=== PATIENT | female | born 1995 | race Two or more races ===

== ENCOUNTER 2017-05-11 04:20 | Inpatient (IN) | payer MEDICAID ==
[2017-05-11] MEDS ORDERED: Lactated Ringers 1,000 ML IV ONE (07:35)
[2017-05-11] MEDS ORDERED: Sodium Chloride 0.9% 10 ML Syringe FLUSH PRN (07:52)
[2017-05-11] MEDS ORDERED: Morphine PF 10 MG/10 ML SDV EPIDUR ONE (07:55)
[2017-05-11] MEDS ORDERED: fentaNYL 100 MCG/2 ML SDV EPIDUR ONE ×2 (07:55→15:50)
[2017-05-11] MEDS ORDERED: Bupivacaine 0.75%/D5W 2 ML Amp INJECT ONE (07:55)
[2017-05-11] MEDS ORDERED: ePHEDrine 50 MG/ML SDV ONE (08:04)
[2017-05-11] MEDS ORDERED: Naloxone 0.4 MG/ML SDV ONE (08:05)
[2017-05-11] MEDS ORDERED: Famotidine/Normal Saline 20 MG in Premix Bag 1 BAG IV PRN (08:17)
[2017-05-11] MEDS ORDERED: diphenhydrAMINE 50 MG/ML SDV IVPUSH PRN ×2 (08:17→16:59)
[2017-05-11] MEDS ORDERED: Promethazine 12.5 MG in Sodium Chloride 0.9% 50 ML IV PRN (08:17)
[2017-05-11] MEDS ORDERED: diphenhydrAMINE 50 MG/ML SDV IV PRN (08:17)
[2017-05-11] MEDS ORDERED: Naltrexone 50 MG Tab PO PRN (08:17)
[2017-05-11] MEDS ORDERED: Scopolamine 1.5 MG Transdermal Patch TOP ONE (08:17)
[2017-05-11] MEDS ORDERED: Nalbuphine 10 MG/1 ML Vial IVPUSH PRN (08:17)
[2017-05-11] MEDS ORDERED: Ondansetron 4 MG/2 ML SDV IVPUSH PRN ×2 (08:17→17:01)
[2017-05-11] MEDS ORDERED: Naloxone 0.4 MG/ML SDV IVPUSH PRN ×2 (08:17→16:59)
[2017-05-11] MEDS ORDERED: Promethazine 6.25 MG in Sodium Chloride 0.9% 50 ML IV PRN (08:17)
[2017-05-11] MEDS: ePHEDrine 50 MG/ML SDV IVPUSH PRN ×2 (08:18→08:22)
[2017-05-11] MEDS ORDERED: Lactated Ringers 1,000 ML IV SCH (08:20)
[2017-05-11] MEDS ORDERED: Scopolamine 1.5 MG Transdermal Patch ONE (08:27)
[2017-05-11] MEDS ORDERED: Lactated Ringers 500 ML IV SCH ×2 (08:30)
[2017-05-11] MEDS ORDERED: Oxytocin/Normal Saline 10 UNIT/1,000 ML BAG IV SCH (09:15)
--- NOTE | 2017-05-11 11:02 | CR ---
INDICATION: Vaginal bleeding at 37 weeks gestation. OB ULTRASOUND LIMITED: Multiple ultrasonic images revealed a single longitudinally-lying, cephalic-presenting fetus, with a regular heart rate of 117 BPM. Four-chamber heart was demonstrated. Three-vessel cord is noted. A normal amount of amniotic fluid is seen. The placenta is grade 3, laterally on the left, without evidence of previa or abruption. No adnexal mass lesion or free fluid collection was demonstrated. IMPRESSION: No evidence of abruption or placenta previa. Grade 3 placenta. Cephalic presentation. MTDD
[2017-05-11] MEDS ORDERED: fentaNYL 100 MCG/2 ML SDV ONE (15:43)
[2017-05-11] MEDS ORDERED: fentaNYL 300 MCG in Ropivacaine 200 ML IV ONE (15:50)
[2017-05-11] MEDS ORDERED: ePHEDrine 50 MG/ML SDV IVPUSH PRN (16:59)
[2017-05-11] MEDS ORDERED: Promethazine 25 MG/ML SDV IV PRN (16:59)
[2017-05-11] MEDS ORDERED: Naloxone 0.4 MG in Sodium Chloride 0.9% 100 ML IV PRN (16:59)
[2017-05-11] MEDS ORDERED: hydrOXYzine HCl 50 MG/ML SDV IM PRN ×2 (16:59)
--- NOTE | 2017-05-11 19:09 | PCM.LDHP ---
L&D History of Present Illness - General Date of Service: 05/11/17 Admit Problem/Dx: Patient Status Order with Admit Dx/Problem 05/11/17 04:29 Admission Status [Patient Status] [ADT] Routine 05/11/17 05:29 Admission Status [Patient Status] [ADT] Routine Admission Diagnosis/Problem Admission Diagnosis/Problem Normal Source of Information: Patient History Limitations: Reports: No Limitations - History of Present Illness Introduction:: Patient presented with vaginal bleeding at term. Painful,associated with contractions. Started at about 3 AM. Progressively getting worse. Quality: Reports: Throbbing Severity: Moderate Improves with: Reports: None - Related Data Allergies/Adverse Reactions: Allergies Allergy/AdvReac Type Severity Reaction Status Date / Time No Known Allergies Allergy Verified 05/09/17 17:12 Home Medications: Home Meds TVL180/Iron Fumarate/FA/DSS [ 19 Tablet] 1 each PO DAILY 05/05/17 [ History] Budesonide [Pulmicort Flexhaler] 2 puff IH DAILY PRN 05/09/17 [History] Fluticasone Propionate [Flonase] 2 sprays NASBOTH DAILY 05/09/17 [History] Past Medical History - Past Health History Medical/Surgical History: Denies Medical/Surgical History HEENT History: Reports: Impaired Vision Genitourinary History: Reports: UTI, 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, Other Musculoskeletal History: RT WRIST FRACTURE Psychiatric History: Reports: Bipolar - Infectious Disease History Infectious Disease History: Reports: Chicken Pox Social & Family History - Family History Family Medical History: Noncontributory HEENT: Reports: Cataract Endocrine/Metabolic: Reports: Diabetes, Type I - Tobacco Use Smoking Status *Q: Former Smoker Years of Tobacco use: 5 Packs/Tins Daily: 1 Used Tobacco, but Quit: Yes Month Tobacco Last Used: JULY Second Hand Smoke Exposure: No - Caffeine Use Caffeine Use: Reports: Soda Other Caffeine Use: 1-2 CANS PER DAY - Recreational Drug Use Recreational Drug Use: No - Living Situation & Occupation Living situation: Reports: Single Occupation: Employed H&P Review of Systems - Review of Systems: Review Of Systems: ROS reveals no pertinent complaints other than HPI. L&D Exam - Exam Exam: See Below - Vital Signs Vital Signs: Last Vital Signs Temp 98 F 05/11/17 15:45 Pulse 80 05/11/17 17:15 Resp 18 05/11/17 11:15 BP 106/63 05/11/17 17:15 Pulse Ox 100 05/11/17 08:15 Weight: 67.585 kg - OB Specific Contraction Duration (sec): 90 Contraction Frequency (min): 2-4 Contraction Intensity: Moderate to Strong - Gonsalves Score Gonsalves Score Cervix Position: Midposition Gonsalves Score Consistency: Soft Gonsalves Score Dilation: > 5 cm Gonsalves Score 's Station: -1 ,0 - Exam General: Alert, Oriented HEENT: PERRLA, Conjunctiva Clear, EACs Clear, EOMI, Hearing Intact, Mucosa Moist & Boles, Nares Patent, Normal Nasal Septum, Posterior Pharynx Clear, TMs Clear Neck: Supple, Trachea Midline Lungs: Clear to Auscultation, Normal Respiratory Effort Cardiovascular: Regular Rate, Regular Rhythm GI/Abdominal Exam: Normal Bowel Sounds, Soft, Non-Tender, No Organomegaly, No Distention, No Abnormal Bruit, No Mass, Pelvis Stable Rectal Exam: Normal Exam, Normal Rectal Tone Genitourinary: Normal external exam, Normal bimanual exam, Normal speculum exam Back Exam: Normal Inspection, Full Range of Motion Extremities: Normal Inspection, Normal Range of Motion, Non-Tender, No Pedal Edema, Normal Capillary Refill Skin: Warm, Dry, Intact Neurological: Cranial Nerves Intact, Reflexes Equal Bilateral Psychiatric: Alert, Normal Affect, Normal Mood - Patient Data Lab Results Last 24 hrs: Laboratory Results - last 24 hr 05/11/17 05/11/17 05/11/17 Range/Units 04:50 04:55 04:55 WBC 9.7 (4.5-12.0) X10-3/uL RBC 4.13 (3.23-5.20) x10(6)uL Hgb 10.8 L (11.5-15.5) g/dL Hct 32.7 (30.0-51.3) % MCV 79.3 L (80-96) fL MCH 26.2 L (27.7-33.6) pg MCHC 33.1 (32.2-35.4) g/dL RDW 13.0 (11.5-15.5) % Plt Count 286 (125-369) X10(3)uL MPV 8.5 (7.4-10.4) fL Neutrophils % (Manual) 62 (46-82) % Lymphocytes % (Manual) 27 (13-37) % Monocytes % (Manual) 11 (4-12) % Sodium 134 L (135-145) mmol/L Potassium 3.6 (3.5-5.3) mmol/L Chloride 108 (100-110) mmol/L Carbon Dioxide 19 L (23-29) mmol/L BUN 6 (5-20) mg/dL Creatinine 0.6 (0.6-1.3) mg/dL Est Cr Clr Drug Dosing 103.85 mL/min Estimated GFR (MDRD) > 60 (>60) BUN/Creatinine Ratio 10.0 (9-20) Glucose 91 (80-116) mg/dL Calcium 9.1 (8.6-10.2) mg/dL Urine Color Yellow (YELLOW) Urine Appearance Clear (CLEAR) Urine pH 7.0 H (5.0-6.5) Ur Specific [place] 1.000 L (1.010-1.025) Urine Protein Negative (NEGATIVE) mg/dL Urine Glucose (UA) Normal (NEGATIVE) mg/dL Urine Ketones Negative (NEGATIVE) mg/dL Urine Occult Blood Large H (NEGATIVE) Urine Nitrite Negative (NEGATIVE) Urine Bilirubin Negative (NEGATIVE) Urine Urobilinogen Normal (NEGATIVE) mg/dL Ur Leukocyte Esterase Small H (NEGATIVE) Urine RBC 10-20 H (0) Urine WBC 0-5 (0) Ur Squamous Epith Cells Occasional (NS,R,O) Urine Bacteria Rare H (NS) Result Diagrams: 05/12/17 06:30 05/11/17 04:55 - Problem List (1) Vaginal bleeding during , antepartum SNOMED Code(s): 87497811 ICD Code: O46.90 - ANTEPARTUM HEMORRHAGE, UNSPECIFIED, UNSPECIFIED TRIMESTER Status: Acute Current Visit: Yes (2) Term SNOMED Code(s): 46552226 ICD Code: Z34.80 - ENCOUNTER FOR SUPRVSN OF NORMAL , UNSP TRIMESTER Status: Acute Current Visit: Yes (3) Anemia affecting SNOMED Code(s): 51309746 ICD Code: O99.019 - ANEMIA COMPLICATING , UNSPECIFIED TRIMESTER Status: Acute Current Visit: Yes Qualifiers: Trimester: third trimester Qualified Code(s): O99.013 - Anemia complicating , third trimester Problem List Initiated/Reviewed/Updated: Yes Orders Last 24hrs: Active Orders 24 hr Category Date Time Status Admission Status [Patient Status] [ADT] Routine ADT 05/11/17 05:29 Active Bedrest [RC] ASDIRECTED Care 05/11/17 08:17 Active Communication Order [RC] ASDIRECTED Care 05/11/17 08:17 Active Communication Order [RC] ASDIRECTED Care 05/11/17 19:08 Ordered Communication Order [RC] Click to Edit Care 05/11/17 08:17 Active Communication Order [RC] Per Unit Routine Care 05/11/17 08:17 Active Communication Order [RC] STAT Care 05/11/17 08:17 Active Heart Rate [RC] Click to Edit Care 05/11/17 08:17 Active Head of Bed Elevation [RC] ASDIRECTED Care 05/11/17 08:17 Active Intake and Output [RC] Q4H Care 05/11/17 08:17 Active Oxygen Therapy [RC] ASDIRECTED Care 05/11/17 08:17 Active [place] Opioid Induced Sedation [RC] Q1H Care 05/11/17 08:17 Active Vital Signs [RC] PFP Care 05/11/17 19:08 Ordered Regular Diet [DIET] Diet 05/11/17 Breakfast Ordered CBC WITH AUTO DIFF [HEME] AM Lab 05/12/17 05:11 Ordered TYPE AND SCREEN [BBK] Routine Lab 05/11/17 19:07 Ordered Famotidine/Normal Saline [Famotidine in NS Premix] 20 Med 05/11/17 08:17 Active mg Premix Bag 1 bag IV ONETIME Ibuprofen [Motrin] Med 05/11/17 19:07 Ordered 600 mg PO Q4H PRN Lactated Ringers [Ringers, Lactated] 1,000 ml Med 05/11/17 08:20 Active IV ASDIRECTED Lactated Ringers [Ringers, Lactated] 500 ml Med 05/11/17 08:30 Active IV .BOLUS Lactated Ringers [Ringers, Lactated] 500 ml Med 05/11/17 08:30 Active IV .SEECOMMENT Misoprostol [Cytotec] Med 05/11/17 19:15 Ordered 800 mcg PO ONETIME Nalbuphine [Nubain] Med 05/11/17 08:17 Active 10 mg IVPUSH Q1H PRN Naloxone [Narcan] Med 05/11/17 16:59 Active 0.1 mg IVPUSH ASDIRECTED PRN Naloxone [Narcan] 0.4 mg Med 05/11/17 16:59 Active Sodium Chloride 0.9% [Normal Saline] 100 ml IV ASDIRECTED Naltrexone Med 05/11/17 08:17 Active 25 mg PO ASDIRECTED PRN Ondansetron [Zofran] Med 05/11/17 17:01 Active 4 mg IVPUSH Q6H PRN Oxytocin/Normal Saline [Pitocin in NS 10 UNITS/1,000 ML Med 05/11/17 09:15 Active ] 10 unit in 1,000 ml IV TITRATE Promethazine [Phenergan] 12.5 mg Med 05/11/17 08:17 Active Sodium Chloride 0.9% [Normal Saline] 50 ml IV Q4H Promethazine [Phenergan] 6.25 mg Med 05/11/17 08:17 Active Sodium Chloride 0.9% [Normal Saline] 50 ml IV Q4H Sodium Chloride 0.9% [Saline Flush] Med 05/11/17 07:52 Active 10 ml FLUSH ASDIRECTED PRN diphenhydrAMINE [Benadryl] Med 05/11/17 08:17 Active 25 mg IVPUSH ASDIRECTED PRN diphenhydrAMINE [Benadryl] Med 05/11/17 16:59 Active 25 mg IVPUSH ASDIRECTED PRN ePHEDrine [ePHEDrine Sulfate] Med 05/11/17 16:59 Active 5 mg IVPUSH ASDIRECTED PRN hydrOXYzine HCl [Vistaril] Med 05/11/17 16:59 Active 0 mg IM Q4H PRN hydrOXYzine HCl [Vistaril] Med 05/11/17 16:59 Active 25 - 50 mg IM Q6H PRN Assess Lochia [WOMSER] Per Unit Routine Ot 05/11/17 19:07 Ordered Assess Uterine Involution [WOMSER] Per Unit Routine Ot 05/11/17 19:07 Ordered Blood Pressure [OM.PC] Routine Ot 05/11/17 08:17 Ordered Do Not Administer Anticoagulant Meds [AST] Per Unit Oth 05/11/17 08:17 Ordered Routine Do Not Administer IV Narcs or Sedatives [AST] Per Unit Ot 05/11/17 08:17 Ordered Routine Ice Therapy [OM.PC] Per Unit Routine Ot 05/11/17 19:08 Ordered Peripheral IV Insertion Adult [OM.PC] Routine Ot 05/11/17 07:35 Ordered Respiratory Rate [OM.PC] [facility] 05/11/17 08:30 Ordered Respiratory Rate [OM.PC] Q1 Ot 05/11/17 08:30 Ordered Respiratory Rate [OM.PC] [address] 05/11/17 09:30 Ordered Respiratory Rate [OM.PC] [address] 05/11/17 09:30 Ordered Respiratory Rate [OM.PC] [address] 05/11/17 10:30 Ordered Respiratory Rate [OM.PC] [address] 05/11/17 10:30 Ordered Respiratory Rate [OM.PC] [address] 05/11/17 11:30 Ordered Respiratory Rate [OM.PC] [address] 05/11/17 11:30 Ordered Respiratory Rate [OM.PC] [address] 05/11/17 12:30 Ordered Respiratory Rate [OM.PC] [address] 05/11/17 13:30 Ordered Respiratory Rate [OM.PC] [address] 05/11/17 14:30 Ordered Respiratory Rate [OM.PC] [address] 05/11/17 15:30 Ordered Respiratory Rate [OM.PC] [address] 05/11/17 16:30 Ordered Respiratory Rate [OM.PC] [address] 05/11/17 17:30 Ordered Respiratory Rate [OM.PC] [address] 05/11/17 18:30 Ordered Respiratory Rate [OM.PC] [address] 05/11/17 19:30 Ordered Respiratory Rate [OM.PC] [address] 05/11/17 20:30 Ordered Respiratory Rate [OM.PC] [address] 05/11/17 21:30 Ordered Respiratory Rate [OM.PC] [address] 05/11/17 22:30 Ordered Respiratory Rate [OM.PC] [address] 05/11/17 23:30 Ordered Respiratory Rate [OM.PC] [facility] Ot 05/12/17 00:30 Ordered Respiratory Rate [OM.PC] [address] 05/12/17 01:30 Ordered Sitz Bath [OM.PC] Per Unit Routine Oth 05/11/17 19:08 Ordered Resuscitation Status Routine Resus Stat 05/11/17 19:07 Ordered Medication Orders Diphenhydramine HCl (Benadryl) 25 mg IVPUSH ASDIRECTED PRN PRN Reason: EXTRAPYRAMIDAL SIDE EFFECTS Diphenhydramine HCl (Benadryl) 25 mg IVPUSH ASDIRECTED PRN PRN Reason: PRURITUS Ephedrine Sulfate (Ephedrine Sulfate) 5 mg IVPUSH ASDIRECTED PRN PRN Reason: HYPOTENSION Hydroxyzine HCl (Vistaril) 25 - 50 mg IM Q6H PRN PRN Reason: PRURITIS Hydroxyzine HCl (Vistaril) 0 mg IM Q4H PRN PRN Reason: N/V Lactated Ringer's (Ringers, Lactated) 1,000 mls @ 150 mls/hr IV ASDIRECTED [facility] Last Admin: 05/11/17 10:45 Dose: 150 mls/hr Famotidine 20 mg/ Premix 50 mls @ 100 mls/hr IV ONETIME PRN PRN Reason: PRURITIS Lactated Ringer's (Ringers, Lactated) 500 mls @ 999 mls/hr IV .SEECOMMENT [facility] Last Admin: 05/11/17 08:30 Dose: 999 mls/hr Lactated Ringer's (Ringers, Lactated) 500 mls @ 999 mls/hr IV .BOLUS [facility] Last Admin: 05/11/17 16:13 Dose: 999 mls/hr Promethazine HCl 6.25 mg/ (Sodium Chloride) 50.25 mls @ 200 mls/hr IV Q4H PRN PRN Reason: Nausea/Vomiting Promethazine HCl 12.5 mg/ (Sodium Chloride) 50.5 mls @ 200 mls/hr IV Q4H PRN PRN Reason: Nausea/Vomiting Oxytocin/Sodium Chloride (Pitocin In Ns 10 Units/1,000 Ml) 10 unit in 1,000 mls @ 12 mls/hr IV TITRATE NOHEMI; 2 MUNITS/MIN PRN Reason: Protocol Last Titration: 05/11/17 16:20 Dose: 14 munits/min, 84 mls/hr Titration: 05/11/17 14:33 Dose: 12 munits/min, 72 mls/hr Titration: 05/11/17 12:33 Dose: 10 munits/min, 60 mls/hr Titration: 05/11/17 11:53 Dose: 8 munits/min, 48 mls/hr Titration: 05/11/17 11:21 Dose: 6 munits/min, 36 mls/hr Titration: 05/11/17 10:40 Dose: 4 munits/min, 24 mls/hr Admin: 05/11/17 10:00 Dose: 2 munits/min, 12 mls/hr Naloxone HCl 0.4 mg/ Sodium (Chloride) 101 mls @ 25 mls/hr IV ASDIRECTED PRN PRN Reason: PER ORDER OF ANESTHESIA Nalbuphine HCl (Nubain) 10 mg IVPUSH Q1H PRN PRN Reason: PRURITUS Naloxone HCl (Narcan) 0.1 mg IVPUSH ASDIRECTED PRN PRN Reason: RESPIRATORY STATUS Naltrexone HCl (Naltrexone) 25 mg PO ASDIRECTED PRN PRN Reason: REVERSAL Ondansetron HCl (Zofran) 4 mg IVPUSH Q6H PRN PRN Reason: N/V Sodium Chloride (Saline Flush) 10 ml FLUSH ASDIRECTED PRN PRN Reason: Keep Vein Open Last Admin: 05/11/17 07:35 Dose: 10 ml Assessment/Plan Comment:: CBC showed mild anemia. US was neg for Placenta Pravia. NST was reactive and reassuring. Will admit for delivery.
[2017-05-11] MEDS ORDERED: Misoprostol 200 MCG Tab PO SCH (19:15)
[2017-05-12] MEDS: Ibuprofen 600 MG Tab PO PRN (11:58)
--- NOTE | 2017-05-12 13:53 | PCM.DEL ---
L & D Note - General Info Date of Service: 05/11/17 - Delivery Note Labor: Spontaneous, Augmented by ARM, Augmented by Oxytocin Delivery Outcome: Livebirth Infant Delivery Method: Spontaneous Vaginal Delivery Presentation: Right Occiput Anterior (RISHI) Nuchal Cord: None Prep: Povidone-Iodine (Betadine Anesthesia Type: Epidural Amniotic Fluid Description: Bloody Episiotomy Type: None Laceration: None Placenta: Intact, Spontaneous, Expressed Cord: 3 Vessels Estimated Blood Loss: 500 (I used oxytosin,uterine massage and Cytotec) Resuscitation Needed: No : Suctioned, Bulb Syringe, Stimulated, Warmed, [place] Used, Warmer Used Post Delivery Events: Hemorrhage Second Stage Interventions: Reports: Second Nurse Assessed Progress of Descent, Second Nurse Reviewed Heart Tones, Encouragement Given Delivery Comments (Free Text/Narrative):: Had post hemorrhage. Successively controlled with uterotonics,and 1 L LR bolus. - General Info Date of Service: 05/11/17 Functional Status: Reports: Pain Controlled - Review of Systems General: Reports: No Symptoms HEENT: Reports: No Symptoms Pulmonary: Reports: No Symptoms Cardiovascular: Reports: No Symptoms Gastrointestinal: Reports: No Symptoms Genitourinary: Reports: No Symptoms Musculoskeletal: Reports: No Symptoms Skin: Reports: No Symptoms Neurological: Reports: No Symptoms Psychiatric: Reports: No Symptoms - Patient Data Vitals - Most Recent: Last Vital Signs Temp 99.9 F 05/12/17 02:54 Pulse 50 L 05/12/17 02:54 Resp 16 05/12/17 02:54 BP 91/43 L 05/12/17 02:54 Pulse Ox 100 05/12/17 02:54 Weight - Most Recent: 67.585 kg I&O - Last 24 Hours: Intake & Output 05/11/17 05/12/17 05/12/17 22:59 06:59 14:59 Intake Total 4293 0 Balance 4293 0 Lab Results Last 24 Hours: Laboratory Results - last 24 hr 05/11/17 05/12/17 Range/Units 05:00 06:30 WBC 14.6 H (4.5-12.0) X10-3/uL RBC 3.23 (3.23-5.20) x10(6)uL Hgb 8.3 L (11.5-15.5) g/dL Hct 25.1 L (30.0-51.3) % MCV 77.9 L (80-96) fL MCH 25.6 L (27.7-33.6) pg MCHC 32.9 (32.2-35.4) g/dL RDW 13.3 (11.5-15.5) % Plt Count 247 (125-369) X10(3)uL MPV 7.7 (7.4-10.4) fL Neut % (Auto) 66.8 (46-82) % Lymph % (Auto) 23.4 (13-37) % [place] % (Auto) 8.9 (4-12) % Eos % (Auto) 1 (1.0-5.0) % Baso % (Auto) 0 (0-2) % Neut # (Auto) 9.8 H (1.6-8.3) # Lymph # (Auto) 3.4 (0.6-5.0) # [place] # (Auto) 1.3 (0.0-1.3) # Eos # (Auto) 0.1 (0.0-0.8) # Baso # (Auto) 0.0 (0.0-0.2) # Blood Type A POSITIVE Gel Antibody Screen Negative Med Orders - Current: Current Medications Diphenhydramine HCl (Benadryl) 25 mg IVPUSH ASDIRECTED PRN PRN Reason: EXTRAPYRAMIDAL SIDE EFFECTS Lactated Ringer's (Ringers, Lactated) 1,000 mls @ 150 mls/hr IV ASDIRECTED NOHEMI Last Admin: 05/11/17 10:45 Dose: 150 mls/hr Famotidine 20 mg/ Premix 50 mls @ 100 mls/hr IV ONETIME PRN PRN Reason: PRURITIS Oxytocin/Sodium Chloride (Pitocin In Ns 10 Units/1,000 Ml) 10 unit in 1,000 mls @ 12 mls/hr IV TITRATE NOHEMI; 2 MUNITS/MIN PRN Reason: Protocol Last Titration: 05/11/17 16:20 Dose: 14 munits/min, 84 mls/hr Ibuprofen (Motrin) 600 mg PO Q4H PRN PRN Reason: Pain Last Admin: 05/12/17 11:58 Dose: 600 mg Misoprostol (Cytotec) 800 mcg PO ONETIME NOHEMI Last Admin: 05/11/17 18:57 Dose: 800 mcg Naltrexone HCl (Naltrexone) 25 mg PO ASDIRECTED PRN PRN Reason: REVERSAL Sodium Chloride (Saline Flush) 10 ml FLUSH ASDIRECTED PRN PRN Reason: Keep Vein Open Last Admin: 05/11/17 07:35 Dose: 10 ml Discontinued Medications Diphenhydramine HCl (Benadryl) 25 mg IV ASDIRECTED PRN PRN Reason: PRURITUS Diphenhydramine HCl (Benadryl) 25 mg IVPUSH ASDIRECTED PRN PRN Reason: PRURITUS Ephedrine Sulfate (Ephedrine Sulfate) Confirm Administered Dose 50 mg .ROUTE .STK-MED ONE Stop: 05/11/17 08:05 Last Admin: 05/11/17 08:36 Dose: Not Given Ephedrine Sulfate (Ephedrine Sulfate) 5 mg IVPUSH ASDIRECTED PRN PRN Reason: Hypotension Last Admin: 05/11/17 08:22 Dose: 5 mg Ephedrine Sulfate (Ephedrine Sulfate) 5 mg IVPUSH ASDIRECTED PRN PRN Reason: HYPOTENSION Fentanyl (Sublimaze) Confirm Administered Dose 400 mcg .ROUTE .STCloudscaling-MED ONE Stop: 05/11/17 15:44 Hydroxyzine HCl (Vistaril) 25 - 50 mg IM Q6H PRN PRN Reason: PRURITIS Hydroxyzine HCl (Vistaril) 0 mg IM Q4H PRN PRN Reason: N/V Lactated Ringer's (Ringers, Lactated) 1,000 mls @ 999 mls/hr IV BOLUS ONE Stop: 05/11/17 08:35 Last Admin: 05/11/17 07:35 Dose: 999 mls/hr Lactated Ringer's (Ringers, Lactated) 500 mls @ 999 mls/hr IV .SEECOMMENT [facility] Last Admin: 05/11/17 08:30 Dose: 999 mls/hr Lactated Ringer's (Ringers, Lactated) 500 mls @ 999 mls/hr IV .BOLUS [facility] Last Admin: 05/11/17 16:13 Dose: 999 mls/hr Promethazine HCl 6.25 mg/ (Sodium Chloride) 50.25 mls @ 200 mls/hr IV Q4H PRN PRN Reason: Nausea/Vomiting Promethazine HCl 12.5 mg/ (Sodium Chloride) 50.5 mls @ 200 mls/hr IV Q4H PRN PRN Reason: Nausea/Vomiting Naloxone HCl 0.4 mg/ Sodium (Chloride) 101 mls @ 25 mls/hr IV ASDIRECTED PRN PRN Reason: PER ORDER OF ANESTHESIA Nalbuphine HCl (Nubain) 10 mg IVPUSH Q1H PRN PRN Reason: PRURITUS Naloxone HCl (Narcan) Confirm Administered Dose 0.4 mg .ROUTE .STK-MED ONE Stop: 05/11/17 08:06 Last Admin: 05/11/17 09:09 Dose: Not Given Naloxone HCl (Narcan) 0.1 mg IVPUSH .SEECOMMENT PRN PRN Reason: Respiratory Depression Stop: 05/11/17 08:18 Naloxone HCl (Narcan) 0.1 mg IVPUSH ASDIRECTED PRN PRN Reason: RESPIRATORY STATUS Ondansetron HCl (Zofran) 4 mg IVPUSH Q4H PRN PRN Reason: Nausea/Vomiting Ondansetron HCl (Zofran) 4 mg IVPUSH Q6H PRN PRN Reason: N/V Promethazine HCl (Phenergan) 6.25 - 12.5 mg IV Q4H PRN PRN Reason: NAUSEA AND VOMITING Scopolamine (Transderm-Scop) 1.5 mg TOP ONETIME ONE Stop: 05/11/17 08:18 Last Admin: 05/11/17 08:30 Dose: 1.5 mg Scopolamine (Transderm-Scop) Confirm Administered Dose 1.5 mg .ROUTE .STK-MED ONE Stop: 05/11/17 08:28 Last Admin: 05/11/17 08:41 Dose: Not Given - Exam General: Alert, Oriented HEENT: Pupils Equal, Pupils Reactive, EOMI, Mucous Membr. Moist/[place] Neck: Supple Lungs: Clear to Auscultation, Normal Respiratory Effort Cardiovascular: Regular Rate, Regular Rhythm GI/Abdominal Exam: Normal Bowel Sounds, Soft, Non-Tender, No Organomegaly, No Distention, No Abnormal Bruit, No Mass, Pelvis Stable (Female) Exam: Normal External Exam, Normal Speculum Exam, Normal Bimanual Exam Back Exam: Normal Inspection, Full Range of Motion Extremities: Normal Inspection, Normal Range of Motion, Non-Tender, No Pedal Edema, Normal Capillary Refill Skin: Warm, Dry, Intact Wound/Incisions: Healing Well Neurological: No New Focal Deficit Psy/Mental Status: Alert, Normal Affect, Normal Mood - Problem List & Annotations (1) Vaginal bleeding during , antepartum SNOMED Code(s): 96887773 Code(s): O46.90 - ANTEPARTUM HEMORRHAGE, UNSPECIFIED, UNSPECIFIED TRIMESTER Status: Acute Current Visit: Yes (2) Term SNOMED Code(s): 64737309 Code(s): Z34.80 - ENCOUNTER FOR SUPRVSN OF NORMAL , UNSP TRIMESTER Status: Acute Current Visit: Yes (3) Anemia affecting SNOMED Code(s): 44364475 Code(s): O99.019 - ANEMIA COMPLICATING , UNSPECIFIED TRIMESTER Status: Acute Current Visit: Yes Qualifiers: Trimester: third trimester Qualified Code(s): O99.013 - Anemia complicating , third trimester (4) hemorrhage SNOMED Code(s): 26943517 Code(s): O72.1 - OTHER IMMEDIATE HEMORRHAGE Status: Acute Current Visit: Yes Qualifiers: hemorrhage type: third-stage Qualified Code(s): O72.0 - Third- stage hemorrhage - Problem List Review Problem List Initiated/Reviewed/Updated: Yes - My Orders Last 24 Hours: My Active Orders 05/11/17 19:07 Ibuprofen [Motrin] 600 mg PO Q4H PRN Assess Lochia [WOMSER] Per Unit Routine Assess Uterine Involution [WOMSER] Per Unit Routine Resuscitation Status Routine 05/11/17 19:08 Communication Order [RC] ASDIRECTED Vital Signs [RC] PFP Ice Therapy [OM.PC] Per Unit Routine Sitz Bath [OM.PC] Per Unit Routine 05/11/17 19:15 Misoprostol [Cytotec] 800 mcg PO ONETIME - Plan Plan:: CBC showed mild anemia. Bolus 1L. Monitor uterine involution and Vital signs.
[2017-05-13 00:56] VITALS: BP 96/56
[2017-05-13] MEDS: Ibuprofen 600 MG Tab PO PRN (07:47)
--- NOTE | 2017-05-13 10:08 | PCM.PNPP ---
- General Info Date of Service: 05/13/17 Functional Status: Reports: Pain Controlled - Review of Systems General: Reports: No Symptoms HEENT: Reports: No Symptoms Pulmonary: Reports: No Symptoms Cardiovascular: Reports: No Symptoms Gastrointestinal: Reports: No Symptoms Genitourinary: Reports: No Symptoms Musculoskeletal: Reports: No Symptoms Skin: Reports: No Symptoms Neurological: Reports: No Symptoms Psychiatric: Reports: No Symptoms - General Info Date of Service: 05/13/17 - Patient Data Vital Signs - Most Recent: Last Vital Signs Temp 98.4 F 05/12/17 21:00 Pulse 62 05/12/17 21:00 Resp 18 05/12/17 21:00 BP 96/56 L 05/12/17 21:00 Pulse Ox 98 05/12/17 21:00 Weight - Most Recent: 67.585 kg Med Orders - Current: Current Medications Diphenhydramine HCl (Benadryl) 25 mg IVPUSH ASDIRECTED PRN PRN Reason: EXTRAPYRAMIDAL SIDE EFFECTS Lactated Ringer's (Ringers, Lactated) 1,000 mls @ 150 mls/hr IV ASDIRECTED NOHEMI Last Admin: 05/11/17 10:45 Dose: 150 mls/hr Famotidine 20 mg/ Premix 50 mls @ 100 mls/hr IV ONETIME PRN PRN Reason: PRURITIS Oxytocin/Sodium Chloride (Pitocin In Ns 10 Units/1,000 Ml) 10 unit in 1,000 mls @ 12 mls/hr IV TITRATE NOHEMI; 2 MUNITS/MIN PRN Reason: Protocol Last Titration: 05/11/17 16:20 Dose: 14 munits/min, 84 mls/hr Ibuprofen (Motrin) 600 mg PO Q4H PRN PRN Reason: Pain Last Admin: 05/13/17 07:47 Dose: 600 mg Misoprostol (Cytotec) 800 mcg PO ONETIME NOHEMI Last Admin: 05/11/17 18:57 Dose: 800 mcg Naltrexone HCl (Naltrexone) 25 mg PO ASDIRECTED PRN PRN Reason: REVERSAL Sodium Chloride (Saline Flush) 10 ml FLUSH ASDIRECTED PRN PRN Reason: Keep Vein Open Last Admin: 05/11/17 07:35 Dose: 10 ml Discontinued Medications Diphenhydramine HCl (Benadryl) 25 mg IV ASDIRECTED PRN PRN Reason: PRURITUS Diphenhydramine HCl (Benadryl) 25 mg IVPUSH ASDIRECTED PRN PRN Reason: PRURITUS Ephedrine Sulfate (Ephedrine Sulfate) Confirm Administered Dose 50 mg .ROUTE .STK-MED ONE Stop: 05/11/17 08:05 Last Admin: 05/11/17 08:36 Dose: Not Given Ephedrine Sulfate (Ephedrine Sulfate) 5 mg IVPUSH ASDIRECTED PRN PRN Reason: Hypotension Last Admin: 05/11/17 08:22 Dose: 5 mg Ephedrine Sulfate (Ephedrine Sulfate) 5 mg IVPUSH ASDIRECTED PRN PRN Reason: HYPOTENSION Fentanyl (Sublimaze) Confirm Administered Dose 400 mcg .ROUTE .[employer] ONE Stop: 05/11/17 15:44 Hydroxyzine HCl (Vistaril) 25 - 50 mg IM Q6H PRN PRN Reason: PRURITIS Hydroxyzine HCl (Vistaril) 0 mg IM Q4H PRN PRN Reason: N/V Lactated Ringer's (Ringers, Lactated) 1,000 mls @ 999 mls/hr IV BOLUS ONE Stop: 05/11/17 08:35 Last Admin: 05/11/17 07:35 Dose: 999 mls/hr Lactated Ringer's (Ringers, Lactated) 500 mls @ 999 mls/hr IV .SEECOMMENT [facility] Last Admin: 05/11/17 08:30 Dose: 999 mls/hr Lactated Ringer's (Ringers, Lactated) 500 mls @ 999 mls/hr IV .BOLUS [facility] Last Admin: 05/11/17 16:13 Dose: 999 mls/hr Promethazine HCl 6.25 mg/ (Sodium Chloride) 50.25 mls @ 200 mls/hr IV Q4H PRN PRN Reason: Nausea/Vomiting Promethazine HCl 12.5 mg/ (Sodium Chloride) 50.5 mls @ 200 mls/hr IV Q4H PRN PRN Reason: Nausea/Vomiting Naloxone HCl 0.4 mg/ Sodium (Chloride) 101 mls @ 25 mls/hr IV ASDIRECTED PRN PRN Reason: PER ORDER OF ANESTHESIA Nalbuphine HCl (Nubain) 10 mg IVPUSH Q1H PRN PRN Reason: PRURITUS Naloxone HCl (Narcan) Confirm Administered Dose 0.4 mg .ROUTE .STK-MED ONE Stop: 05/11/17 08:06 Last Admin: 05/11/17 09:09 Dose: Not Given Naloxone HCl (Narcan) 0.1 mg IVPUSH .SEECOMMENT PRN PRN Reason: Respiratory Depression Stop: 05/11/17 08:18 Naloxone HCl (Narcan) 0.1 mg IVPUSH ASDIRECTED PRN PRN Reason: RESPIRATORY STATUS Ondansetron HCl (Zofran) 4 mg IVPUSH Q4H PRN PRN Reason: Nausea/Vomiting Ondansetron HCl (Zofran) 4 mg IVPUSH Q6H PRN PRN Reason: N/V Promethazine HCl (Phenergan) 6.25 - 12.5 mg IV Q4H PRN PRN Reason: NAUSEA AND VOMITING Scopolamine (Transderm-Scop) 1.5 mg TOP ONETIME ONE Stop: 05/11/17 08:18 Last Admin: 05/11/17 08:30 Dose: 1.5 mg Scopolamine (Transderm-Scop) Confirm Administered Dose 1.5 mg .ROUTE .STK-MED ONE Stop: 05/11/17 08:28 Last Admin: 05/11/17 08:41 Dose: Not Given - Interaction Disposition, : in Room with Family Infant Interaction: Holding Infant Feeding: Breastfed ; Nursed Well Support Person: - Recovery Exam Fundal Tone: Firm Fundal Level: 1 Fingerbreadths Below Umbilicus Fundal Placement: Midline Lochia Amount: Small Lochia Color: Rubra/Red Perineum Description: Intact, Minimal Bruising/Swelling Episiotomy/Laceration: None Bladder Status: Voiding - Exam General: Alert, Oriented HEENT: Pupils Equal Neck: Supple Lungs: Clear to Auscultation, Normal Respiratory Effort Cardiovascular: Regular Rate, Regular Rhythm GI/Abdominal Exam: Normal Bowel Sounds, Soft, Non-Tender, No Organomegaly, No Distention, No Abnormal Bruit, No Mass, Pelvis Stable Extremities: Normal Inspection, Normal Range of Motion, Non-Tender, No Pedal Edema, Normal Capillary Refill Skin: Warm, Dry, Intact Wound/Incisions: Healing Well Neurological: No New Focal Deficit Psy/Mental Status: Alert, Normal Affect, Normal Mood - Problem List & Annotations (1) Vaginal bleeding during , antepartum SNOMED Code(s): 34165646 Code(s): O46.90 - ANTEPARTUM HEMORRHAGE, UNSPECIFIED, UNSPECIFIED TRIMESTER Status: Acute Current Visit: Yes (2) hemorrhage SNOMED Code(s): 27616403 Code(s): O72.1 - OTHER IMMEDIATE HEMORRHAGE Status: Acute Current Visit: Yes Qualifiers: hemorrhage type: third-stage Qualified Code(s): O72.0 - Third- stage hemorrhage (3) Delivery normal SNOMED Code(s): 07579868 Code(s): O80 - ENCOUNTER FOR FULL-TERM UNCOMPLICATED DELIVERY; Z37.9 - OUTCOME OF DELIVERY, UNSPECIFIED Status: Acute Current Visit: Yes (4) Anemia SNOMED Code(s): 691271794 Code(s): D64.9 - ANEMIA, UNSPECIFIED Status: Acute Current Visit: Yes - Problem List Review Problem List Initiated/Reviewed/Updated: Yes - Plan Plan:: Doing well. Will start Ferrous Gluconate,send home.
--- NOTE | 2017-05-14 03:05 | DISCH ---
DISCHARGE DATE: 05/13/2017 REASON FOR ADMISSION: Early labor. DISCHARGE DIAGNOSIS: Includes anemia, spontaneous vaginal delivery. COMPLICATIONS: hemorrhage. BRIEF HISTORY: A 22-year-old female, G3, P2, presented at 37 weeks and half with bleeding, thought to be bloody show. She delivered a male live infant but had some bleeding afterwards, which was controlled by Cytotec, uterine massage, and oxytocin. Hemoglobin went down to 8.2. Discharged home today on iron supplementation and to come in the clinic in 6 weeks. I spent more than 35 minutes in the discharge of the patient. /[id number] BRY/KEN
== END 2017-05-13 11:15 | disposition home or self-care (01) | DRG 560 ==
LOC: FB.OBCHECK 04:20 → FB.OB 04:21 → UNDOADMIN 05:29 → FB.OBCHECK 05:29 → FB.OB 05:29 → UNDODISIN 05-13 11:15
PROVIDERS: ADMIT Family Medicine; ATTEND Family Medicine
PROC: 10E0XZZ Delivery of Products of Conception, External Approach (ICD-10-PCS; principal; 2017-05-11)
PROC: 10907ZC Drainage of Amniotic Fluid, Therapeutic from Products of Conception, Via Natural or Artificial Opening (ICD-10-PCS; 2017-05-11)
PROC: 00HU33Z Insertion of Infusion Device into Spinal Canal, Percutaneous Approach (ICD-10-PCS; 2017-05-11)
DX: O72.1 Other immediate postpartum hemorrhage (principal); O46.93 Antepartum hemorrhage, unspecified, third trimester; Z3A.37 37 weeks gestation of pregnancy; Z37.0 Single live birth; O90.81 Anemia of the puerperium; Z87.440 Personal history of urinary (tract) infections; Z87.891 Personal history of nicotine dependence; Z86.59 Personal history of other mental and behavioral disorders
CPT/HCPCS: 36415; 76815; 80048; 81001; 85025; 86850; 86900; 86901; A9270-GY; J2270; J2590; J2795; J3010; J7050; J7120